=== PATIENT | female | born 2000 ===

== ENCOUNTER 2024-06-06 13:20 | Emergency (ER) | payer SELFPAY ==
[2024-06-06 13:45] VITALS: BP 118/74; PULSE 95; RESP 16; TEMP 36.8; O2SAT 100
--- NOTE | 2024-06-06 14:59 | ED.GENADULT ---
HPI - General Adult General Chief complaint: Upper Respiratory Infection Stated complaint: sinus infection Time Seen by Provider: 06/06/24 14:48 History of Present Illness HPI narrative: Patient 24-year-old female who presents emergency department with chief complaint of ear pain and sinus congestion. The patient reports symptoms began yesterday reports she had fever at home reports that she has pressure in her ears. The patient reports feels similar to when she has had an ear infection in the past and also reports that she has a lot of nasal congestion and is unable to blow her nose. Related Data Allergies Allergy/AdvReac Type Severity Reaction Status Date / Time No Known Allergies Allergy Verified 06/06/24 13:44 Review of Systems Review of Systems: A 10 system review of systems was completed on the patient and is negative except for what is stated in the HPI. Nursing and ancillary documentation was reviewed. Exam Narrative: GENERAL: Well-appearing, well-nourished, and in no acute distress. HEAD: Normocephalic, atraumatic. EYES: PERRLA and EOMI. ENT: Nares clear, no rhinorrhea or epistaxis. Mucous membranes moist. There is erythema and bulging of the right tympanic membrane NECK: Supple. CHEST: Clear to auscultation. No respiratory distress. HEART: Regular rate and rhythm. No murmur heard. Normal peripheral pulses. ABDOMEN: Soft, nontender, nondistended, normal active bowel sounds. EXTREMITIES: Normal range of motion. No edema. SKIN: Warm, dry, no rash. NEURO: No focal deficits. Alert and oriented x3. PSYCH: Normal mood and affect. Course Vital Signs Vital signs: Vital Signs Temperature 36.8 C 06/06/24 13:45 Pulse Rate 95 06/06/24 13:45 Respiratory Rate 16 06/06/24 13:45 Blood Pressure 118/74 06/06/24 13:45 Pulse Oximetry 100 06/06/24 13:45 Oxygen Delivery Room Air 06/06/24 13:45 Temperature 36.8 C 06/06/24 13:45 Pulse Rate 95 06/06/24 13:45 Respiratory Rate 16 06/06/24 13:45 Blood Pressure 118/74 06/06/24 13:45 Pulse Oximetry 100 06/06/24 13:45 Oxygen Delivery Room Air 06/06/24 14:58 Medical Decision Making MDM Narrative Medical decision making narrative: Differential diagnosis includes otitis media, strep pharyngitis, sinusitis Patient had evidence of acute otitis media on exam. The patient will be treated with Augmentin due to the sinus and action the patient will also be started on steroid help with sinus drainage. Vital Signs Vital Signs: Vital Signs Temperature 36.8 C 06/06/24 13:45 Pulse Rate 95 06/06/24 13:45 Respiratory Rate 16 06/06/24 13:45 Blood Pressure 118/74 06/06/24 13:45 Pulse Oximetry 100 06/06/24 13:45 Oxygen Delivery Room Air 06/06/24 13:45 Temperature 36.8 C 06/06/24 13:45 Pulse Rate 95 06/06/24 13:45 Respiratory Rate 16 06/06/24 13:45 Blood Pressure 118/74 06/06/24 13:45 Pulse Oximetry 100 06/06/24 13:45 Oxygen Delivery Room Air 06/06/24 14:58 Discharge Plan Discharge Clinical Impression: Acute otitis media, right, Sinusitis Patient Disposition: Home, Self-Care Condition: Stable Instructions: Antibiotic Form, Sinusitis (ED), Ear Infection (ED) Prescriptions: New amoxicillin-pot clavulanate 875-125 mg tablet 1 tablet PO Q12H 10 Days Qty: 20 0RF prednisone 20 mg tablet 40 mg PO DAILY 5 Days Qty: 10 0RF Follow-up/Referrals: Nima Mayfield MD [Physician] - PHYSICIAN,[facility] [Primary Care Provider] -
[2024-06-06] MEDS: predniSONE 20 MG TABLET 60 MG PO (15:10)
[2024-06-06] MEDS: AMOXICILLIN/CLAVULANATE K 875-125 MG TAB 1 TABLET PO (15:10)
== END 2024-06-06 15:15 | disposition home or self-care (01) ==
PROVIDERS: Emergency Provider Emergency Medicine
DX: H66.91 Otitis media, unspecified, right ear (principal); J32.9 Chronic sinusitis, unspecified
CPT/HCPCS: 99283; A9270; J7512